=== PATIENT | male | born 1940 | race Caucasian/White ===

== ENCOUNTER → 2018-09-17 08:24 | Outpatient (CLI) | payer MEDICARE, OTHER, SELFPAY ==
--- NOTE | 2018-09-17 | DI.US.S_ITS ---
PROCEDURE: US ABD AORTA ANEURYSM SCREEN INDICATIONS: screening for cardiovascular disorders TECHNIQUE: Real time scanning was performed of the aorta and iliac arteries, with image documentation. COMPARISON: None. FINDINGS: Aorta: Proximal aortic diameter measures 2.5 cm. Mid-aorta measures 2.1 cm. Distal aortic diameter is 1.9 cm. Iliac arteries: Right common iliac artery measures 1.2 cm. Left common iliac artery measures 1.2 cm. IMPRESSION: Negative for aneurysm. Dictated by: Sj Pearson M.D. on 09/17/2018 at 10:04 Approved by: Sj Pearson M.D. on 09/17/2018 at 10:05
[2018-09-17 09:16] LABS: Cholesterol 186 mg/dL (140-199); HDL Cholesterol 40 mg/dL (40-60); LDL Cholesterol Calculated 133 mg/dL (<100); Triglycerides 64 mg/dL (35-150)
[2018-09-17 09:48] LABS: Prostate Specific Antigen Scrn 2.26 ng/mL (0.1-4.0)
== END ==
PROVIDERS: Visit Provider Internal Medicine
DX: Z00.00 Encounter for general adult medical examination without abnormal findings (principal); Z13.6 Encounter for screening for cardiovascular disorders; N40.1 Benign prostatic hyperplasia with lower urinary tract symptoms; K63.5 Polyp of colon; Z12.5 Encounter for screening for malignant neoplasm of prostate
CPT/HCPCS: 36415; 76706; 80061; G0103

== ENCOUNTER → 2019-12-20 13:04 | Outpatient (CLI) | payer MEDICARE, OTHER, SELFPAY ==
[2019-12-21 10:26] LABS: COVID19 Sendout Not Detected (Not Detect)
== END ==
PROVIDERS: Visit Provider Physician Assistant
DX: Z01.812 Encounter for preprocedural laboratory examination (principal)
CPT/HCPCS: 87635

== ENCOUNTER 2019-12-23 12:03 | Day surgery (SDC) | payer MEDICARE, OTHER, SELFPAY ==
--- NOTE | 2019-12-23 | PATH_ITS ---
[facility] Accession Number: [id number] . 01 Material submitted: . cecum - CECUM POLYP . 02 Diagnosis: Cecum, Polyp: Colonic mucosa with no diagnostic abnormality, consistent with polypoid redundancy. Negative for serrated lesion, dysplasia or malignancy. Additional step sections examined. MRV 12/28/2019 1011 Local . 02 Electronically signed: . Evan Ledesma MD, PhD, Pathologist NPI- [id number] . 01 Gross description: . Received in formalin, labeled cecum polyp, and consists of two davidson-pink fragments of soft tissue measuring 1.0 x 0.6 x 0.3 cm in aggregate. The specimen is entirely submitted in cassette A1. ([id number]) /MRV 12/24/2019 1406 Local . 02 Pathologist provided ICD-10: K63.5 . 02 CPT . 270380 Performed at: 01 [facility] [address] [facility], [place], [place] [id number] MD Pola Ceja MD Phone: [phone] Performed at: 02 [facility] [address] [place], [place] [id number] MD Kristen Avendano MD Phone: [phone]
[2019-12-23] MEDS: LACTATED RINGERS 1,000 ML 200 ML IV (12:17)
[2019-12-23 12:30] VITALS: BP 135/74; PULSE 62; RESP 20; TEMP 36.6; O2SAT 98; BMI 24.7
--- NOTE | 2019-12-23 12:56 | P.HP_ITS ---
History of Present Illness History of Present Illness Date Patient Seen: 12/23/19 Time Patient Seen: 12:57 Chief complaint: SDC Narrative: The patient presents for colorectal sreening. He had previous colonoscopy 5 years ago significant for polyps which were removed. No personal or family history of colon cancer. On further history denies any recent gastrointestinal symptoms. No nausea, vomiting, abdominal pain, loss of appetite, unexplained weight loss, change in bowel habits, diarrhea, constipation, melena, hematochezia, or bright red blood per rectum. Patient History Family & Social History Social History: household members spouse Tobacco & Substance use: Smoking Status Former smoker alcohol intake current alcohol intake frequency a few times a month Substance Use Type does not use Meds Home Medications and Allergies Home Medications Medication Instructions Recorded Confirmed Type No Known Home Medications 11/24/19 12/23/19 History Allergies Allergy/AdvReac Type Severity Reaction Status Date / Time Penicillins Allergy Severe Hives Verified 12/23/19 12:42 Review of Systems Review of Systems Narrative: A 10 point review of systems is negative except as noted in the HPI Exam Vital Signs (past 8 hours): - 12/23/19 12:30 Temperature 98 F Pulse Rate 62 Respiratory Rate 20 Blood Pressure 135/74 Pulse Oximetry 98 Oxygen Delivery Method Room Air Narrative Exam Narrative: General-no acute distress, well nourished adult male HEENT-moist mucous membranes, no scleral icterus Neck-supple, no lymphadenopathy Chest- non labored respirations, clear to auscultation bilaterally Cardiac-regular rate no peripheral edema Abdomen-soft, nontender, non distended Extremities-warm, well perfused Neurological-alert and oriented, no focal deficits Assessment & Plan Assessment & Plan narrative: The patient requires colorectal screening and col onoscopy is recommended. Technical details were discussed. Risks, benefits, alternatives explained. Risks including but not limited to myocardial infarction, aspiration, bleeding, pain, missed lesion, incomplete examination, need for further radiographic studies, colonic perforation, and need for major abdominal surgery were discussed. All questions were answered to their satisfaction, and they are in agreement with this plan.
[2019-12-23] MEDS: fentaNYL 250 MCG/5 ML INJ IV (13:22)
[2019-12-23] MEDS: MIDAZOLAM 5 MG/5 ML VIAL IV (13:24)
--- NOTE | 2019-12-23 13:34 | PM.OP.ENDO ---
Operative Date/Time/Diagnoses Date of procedure: 12/23/19 Time of procedure: 13:34 Pre-op diagnosis: History of polyps Post-op diagnosis: same Procedure & Clinicians Study performed: Colonoscopy Same procedure as scheduled: Yes Indications: 79-year-old male history of polyps last colonoscopy 5 years ago here for screening Surgeon: Tra Miller Procedure Notes SCOAP/Timeout: Performed Procedure in detail: Patient placed in left lateral recumbent position. Time out was performed. Procedural sedation was administered with Versed and Fentanyl. Examination began with a thorough inspection of the perianal area there was no evidence of fissures, fistulae, external hemorrhoids or cutaneous malignancy. The colonoscopy scope was then placed into the rectum the the lumen was insufflated with air. The scope was carefully advanced forward. Ultimately the cecum was intubated and confirmed by identification of the ileocecal valve, the appendiceal orifice and the confluence of the taenia. The scope was then slowly withdrawn examining colon thoroughly in all directions. In the rectum the rectal columns were identified and retroflexion of the scope was performed for inspection of the distal rectum and anal canal. The colonoscopy was notable for the followin. Quality of the preparation-good 2. Two less than 5 mm benign appearing polyps within the cecum removed with biopsy forceps hemostasis observed. 3. Sigmoid diverticulosis Scope withdrawal time: 8 Sedation minutes: 27 Findings: diverticulosis and polyp Specimen(s): other (Cecal polyps) Complications: none Impression: Polyps Post-procedure Recommendations: Colonscopy in 5 years Disposition: same day surgery
[2019-12-23 13:38] VITALS: BP 147/76; PULSE 59; RESP 17; TEMP 36.8; O2SAT 98
[2019-12-23 13:43] VITALS: BP 145/73; PULSE 58; RESP 17; O2SAT 98
[2019-12-23 13:47] VITALS: BP 134/75; PULSE 57; RESP 14; O2SAT 98
[2019-12-23 13:53] VITALS: BP 120/80; PULSE 65; RESP 16; O2SAT 99
[2019-12-23 14:00] VITALS: BP 135/71; PULSE 62; RESP 17; TEMP 36.3; O2SAT 97
== END 2019-12-23 14:15 | disposition home or self-care (01) ==
PROVIDERS: Referring Provider Surgery; Visit Provider Surgery
PROC: 0DJD8ZZ Inspection of Lower Intestinal Tract, Via Natural or Artificial Opening Endoscopic (ICD-10-PCS; CPT 45378; principal; 2019-12-23 13:00)
DX: Z12.11 Encounter for screening for malignant neoplasm of colon (principal); Z86.010 Personal history of colon polyps; K63.5 Polyp of colon; K57.30 Diverticulosis of large intestine without perforation or abscess without bleeding
CPT/HCPCS: 45380; 99152; 99153; J2250; J3010